=== PATIENT | male | born 2000 | race Hispanic/Latino ===

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

== ENCOUNTER 2022-04-12 20:41 | Emergency (ER) | payer MEDICAID, OTHER ==
--- NOTE | 2022-04-12 21:48 | RAD REPORT ---
EXAM DESCRIPTION: RAD - Chest Pa And Lat (2 Views) - 04/12/2022 9:32 pm CLINICAL HISTORY: CHEST PAIN COMPARISON: Portable chest 02/07/2020 TECHNIQUE: Frontal and lateral views of the chest were obtained. FINDINGS: The lungs are clear. Heart size is normal and central vasculature is within normal limit s. No pleural effusion or pneumothorax seen. No acute bony finding noted. No aortic abnormality. IMPRESSION: No acute cardiopulmonary process.
--- NOTE | 2022-04-12 21:56 | EDPHYS ---
Physician Documentation [facility] Name: Fred Camarena Age: 22 yrs Sex: Male : 2000 Arrival Date: 04/12/2022 Time: 20:48 Bed 14 Private MD: ED Physician Jeffrey Lanier HPI: 04/12 21:04 This 22 yrs old Male presents to ER via Ambulatory with complaints of kb Breathing Difficulty, Flank Pain. 21:04 The patient has shortness of breath at rest. Onset: The symptoms/episode began/occurred kb 2 day(s) ago. Duration: The symptoms are continuous. The patient's shortness of breath has no apparent modifying factors. Associated signs and symptoms: Pertinent positives: chest pain. Severity of symptoms: At their worst the symptoms were moderate in the emergency department the symptoms are unchanged. The patient has not experienced similar symptoms in the past. The patient has not recently seen a physician. pt reports he woke up with shortness of breath 2 days ago with right chest pain. . Historical: - Allergies: 20:52 unknown ADHD med; hb - Home Meds: 20:52 None [Active]; hb - PMHx: 20:52 ADD/ADHD; hb - PSHx: 20:52 None; hb - Immunization history:: Adult Immunizations up to date. - Social history:: Smoking status: Patient reports the use of cigarette tobacco products, denies chronic smoking, but will smoke occasionally. ROS: 21:04 Constitutional: Negative for fever, chills, and weight loss. kb 21:04 Cardiovascular: Positive for chest pain, Negative for edema, orthopnea, palpitations, paroxysmal nocturnal dyspnea. 21:04 Respiratory: Positive for shortness of breath. 21:04 All other systems are negative. Exam: 21:03 Constitutional: This is a well developed, well nourished patient who is awake, alert, kb and in no acute distress. Head/Face: Normocephalic, atraumatic. ENT: Moist Mucous membranes Cardiovascular: Regular rate and rhythm with a normal S1 and S2. No gallops, murmurs, or rubs. No pulse deficits. Respiratory: Respirations even and unlabored. No increased work of breathing. Talking in full sentences Abdomen/GI: Soft, non-tender. No distention Skin: Warm, dry with normal turgor. Normal color. MS/ Extremity: Pulses equal, no cyanosis. Neurovascular intact. Full, normal range of motion. Neuro: Awake and alert, GCS 15, oriented to person, place, time, and situation. Moves all extremities. Normal gait. Psych: Awake, alert, with orientation to person, place and time. Behavior, mood, and affect are within normal limits. 21:03 ECG was reviewed by the Attending Physician. Vital Signs: 20:51 BP 170 / 102; Pulse 109; Resp 20; Temp 97.9; Pulse Ox 97% on R/A; Weight 136.08 kg; hb Height 5 ft. 7 in. (170.18 cm); Pain 8/10; 21:35 BP 124 / 83; Pulse 114; Resp 28; Pulse Ox 97% on R/A; jb4 22:22 BP 117 / 78; Pulse 139; Resp 24; Pulse Ox 96% on R/A; jb4 20:51 Body Mass Index 46.99 (136.08 kg, 170.18 cm) hb MDM: 20:49 Patient medically screened. kb 21:03 Data reviewed: vital signs, nurses notes. Data interpreted: Pulse oximetry: on room air kb is 97 %. Interpretation: normal. 21:55 Counseling: I had a detailed discussion with the patient and/or guardian regarding: the kb historical points, exam findings, and any diagnostic results supporting the discharge/admit diagnosis, radiology results, the need for outpatient follow up, a family practitioner, to return to the emergency department if symptoms worsen or persist or if there are any questions or concerns that arise at home. 04/12 20:53 Order name: Chest Pa And Lat (2 Views) XRAY; Complete Time: 21:54 kb 04/12 20:53 Order name: EKG; Complete Time: 20:53 kb 04/12 20:53 Order name: EKG - Nurse/Tech; Complete Time: 21:05 kb EC:03 Rate is 106 beats/min. Rhythm is regular. QRS [place] is Normal. SC interval is normal at kb 124 msec. QRS interval is normal at 88 msec. QT interval is normal at 448 msec. Administered Medications: 22:06 Drug: Albuterol 2.5 mg Route: Inhalation; 4 22:30 Follow up: Response: No adverse reaction; Marked relief of symptoms jb4 22:06 Drug: AtroVENT (ipratropium) Aerosol 0.5 mg Route: Inhalation; jb4 22:29 Follow up: Response: No adverse reaction; Marked relief of symptoms jb4 22:06 Drug: Ibuprofen 800 mg Route: PO; jb4 22:29 Follow up: Response: No adverse reaction; Marked relief of symptoms; Pain is decreased jb4 Disposition: 22:36 Co-signature as Attending Physician, Jeffrey Lanier MD. rn Disposition Summary: 04/12/22 21:56 Discharge Ordered Location: Home kb Condition: Stable kb Diagnosis - Dyspnea kb - Chest pain on breathing kb Followup: kb - With: Emergency Department - When: As needed - Reason: Worsening of condition Followup: kb - With: Private Physician - When: 2 - 3 days - Reason: Recheck today's complaints, Continuance of care, Re-evaluation by your physician Discharge Instructions: - Discharge Summary Sheet kb - Shortness of Breath, Adult, [id number] kb - Pleurisy, [id number] kb Forms: - Medication Reconciliation Form kb - Thank You Letter kb - Antibiotic Education kb - Prescription Opioid Use kb Signatures: Dispatcher [employer] EDСветлана Parson, SCARF GLUER-C SCARF GLUER-Ckb Jeffrey Lanier MD MD rn Baxter, Heather, RN RN Radu Zuluaga, ABAD RN jb4 Corrections: (The following items were deleted from the chart) 20:53 20:52 Allergies: No Known Allergies; cox monett
--- NOTE | 2022-04-12 21:56 | ER ---
Nurse's Notes [facility] Name: Fred Camarena Age: 22 yrs Sex: Male : 2000 Arrival Date: 04/12/2022 Time: 20:48 Bed 14 Private MD: Diagnosis: Dyspnea;Chest pain on breathing Presentation: 04/12 20:51 Chief complaint: Right sided chest pain x 2 days, pain is worse with deep breathing. hb Coronavirus screen: At this time, the client does not indicate any symptoms associated with coronavirus-19. Ebola Screen: No symptoms or risks identified at this time. Initial Sepsis Screen: Does the patient meet any 2 criteria? No. Patient's initial sepsis screen is negative. Does the patient have a suspected source of infection? No. Patient's initial sepsis screen is negative. Risk Assessment: Do you want to hurt yourself or someone else? Patient reports no desire to harm self or others. Onset of symptoms was April 10, 2022. 20:51 Method Of Arrival: Ambulatory hb 20:51 Acuity: SHAKIRA 3 hb Historical: - Allergies: 20:52 unknown ADHD med; hb - Home Meds: 20:52 None [Active]; hb - PMHx: 20:52 ADD/ADHD; hb - PSHx: 20:52 None; hb - Immunization history:: Adult Immunizations up to date. - Social history:: Smoking status: Patient reports the use of cigarette tobacco products, denies chronic smoking, but will smoke occasionally. Screenin:[facility] ED Fall Risk Assessment (Adult) History of falling in the last 3 months, jb4 including since admission No falls in past 3 months (0 pts) Confusion or Disorientation No (0 pts) Intoxicated or Sedated No (0 pts) Impaired Gait No (0 pts) Mobility Assist Device Used No (0 pt) Altered Elimination No (0 pt) Score/Fall Risk Level 0 - 2 = Low Risk Oriented to surroundings, Maintained a safe environment. Abuse screen: Denies threats or abuse. Nutritional screening: No deficits noted. Tuberculosis screening: No symptoms or risk factors identified. Fall Risk No fall in past 12 months (0 pts). No IV (0 pts). Ambulatory Aid- None/Bed Rest/Nurse Assist (0 pts). Gait- Normal/Bed Rest/Wheelchair (0 pts) Mental Status- Oriented to own ability (0 pts). Total Padilla Fall Scale indicates No Risk (0-24 pts). Assessment: 21:43 General: Appears in no apparent distress. comfortable, Behavior is calm, cooperative, jb4 appropriate for age. Pain: Complains of pain in right lateral anterior chest Pain does not radiate. Pain currently is 7 out of 10 on a pain scale. Quality of pain is described as sharp. Neuro: Level of Consciousness is awake, alert, obeys commands, Oriented to person, place, time, situation. Cardiovascular: Patient's skin is warm and dry. Respiratory: Airway is patent Respiratory effort is even, labored, Respiratory pattern is symmetrical, tachypnea Breath sounds are clear bilaterally. GI: No signs and/or symptoms were reported involving the gastrointestinal system. : No signs and/or symptoms were reported regarding the genitourinary system. EENT: No signs and/or symptoms were reported regarding the EENT system. Derm: Skin is intact, Skin is pink, warm \T\ dry. Musculoskeletal: Circulation, motion, and sensation intact. Range of motion: intact in all extremities. 22:06 Reassessment: D/c pending completion of breathing treatment. jb4 22:22 Reassessment: Patient appears in no apparent distress at this time. Patient and/or jb4 family updated on plan of care and expected duration. Pain level reassessed. Patient is alert, oriented x 3, equal unlabored respirations, skin warm/dry/pink. Pt reports being able to take deeper breaths with ease, reports a decrease in pain. Patient states feeling better. Patient states symptoms have improved. 22:28 Reassessment: Updated provider on pt status and vs, provider okayed pt for d/c. jb4 Vital Signs: 20:51 BP 170 / 102; Pulse 109; Resp 20; Temp 97.9; Pulse Ox 97% on R/A; Weight 136.08 kg; hb Height 5 ft. 7 in. (170.18 cm); Pain 8/10; 21:35 BP 124 / 83; Pulse 114; Resp 28; Pulse Ox 97% on R/A; jb4 22:22 BP 117 / 78; Pulse 139; Resp 24; Pulse Ox 96% on R/A; jb4 20:51 Body Mass Index 46.99 (136.08 kg, 170.18 cm) hb ED Course: 20:48 Patient arrived in ED. ja2 20:49 [facility]ан[facility] kb 20:49 Jeffrey Lanier MD is Attending Physician. kb 20:52 Triage completed. hb 20:52 Arm band placed on. hb 21:34 Chest Pa And Lat (2 Views) XRAY In Process Unspecified. EDMS 21:43 Radu Mendes, RN is Primary Nurse. jb4 21:43 Patient has correct armband on for positive identification. Placed in gown. Bed in low jb4 position. Call light in reach. Side rails up X 1. 21:43 Client placed on continuous cardiac and pulse oximetry monitoring. NIBP monitoring jb4 applied. quality assurance monitor on. 22:28 No provider procedures requiring assistance completed. Patient did not have IV access jb4 during this emergency room visit. Administered Medications: 22:06 Drug: Albuterol 2.5 mg Route: Inhalation; jb4 22:30 Follow up: Response: No adverse reaction; Marked relief of symptoms jb4 22:06 Drug: AtroVENT (ipratropium) Aerosol 0.5 mg Route: Inhalation; jb4 22:29 Follow up: Response: No adverse reaction; Marked relief of symptoms jb4 22:06 Drug: Ibuprofen 800 mg Route: PO; jb4 22:29 Follow up: Response: No adverse reaction; Marked relief of symptoms; Pain is decreased jb4 Medication: 22:28 VIS not applicable for this client. jb4 Outcome: 21:56 Discharge ordered by . kb 22:29 Discharged to home ambulatory. jb4 22:29 Condition: stable 22:29 Discharge instructions given to patient, Instructed on discharge instructions, follow up and referral plans. Demonstrated understanding of instructions, follow-up care. 22:30 Patient left the ED. jb4 Signatures: Dispatcher [employer] EDMS Светлана Cross FNP-C FNP-Ckb Baxter, Heather, RN RN Radu Mendes RN RN jb4 Reena Allen2 Corrections: (The following items were deleted from the chart) 20:53 20:52 Allergies: No Known Allergies; hb hb 20:55 20:51 BP 174 / 114; Pulse 109bpm; Resp 20bpm; Pulse Ox 97% RA; Temp 97.9F; 136.08 kg; hb Height 5 ft. 7 in.; BMI: 46.9; Pain 8/10; hb 21:45 21:43 Respiratory: Airway is patent Respiratory effort is even, unlabored, Respiratory jb4 pattern is regular, symmetrical, Breath sounds are clear bilaterally. jb4 22:29 22:22 Reassessment: Patient appears in no apparent distress at this time. Patient jb4 and/or family updated on plan of care and expected duration. Pain level reassessed. Patient is alert, oriented x 3, equal unlabored respirations, skin warm/dry/pink. jb4
[2022-04-12] MEDS ORDERED: IBUPROFEN 400 MG TAB ONE (22:02)
[2022-04-12] MEDS ORDERED: ALBUTEROL 2.5 MG/3 ML NEB SOL ONE (22:02)
[2022-04-12] MEDS ORDERED: IPRATROPIUM BROM 0.5MG/2.5ML ONE (22:03)
[2022-04-12 22:35] VITALS: TEMP 97.9
[2022-04-12 22:37] VITALS: BP 117/78; O2SAT 96
--- NOTE | 2022-04-14 15:18 | EKG ---
Test Date: 2022-04-12 Test Time: 20:58:14 Asset Administrator: MERT MEASUREMENT RESULTS: Intervals: Rate: 106 NV: 124 QRSD: 88 QT: 338 QTc: 448 [place]: P: 56 NV: 124 QRS: 64 T: 28 INTERPRETIVE STATEMENTS: Sinus tachycardia Otherwise normal ECG Compared to ECG 02/07/2020 17:09:01 Sinus bradycardia no longer present Sinus arrhythmia no longer present Electronically Signed On 04-14-22 15:16:08 PHOTO TUBE ASSEMBLER by Sushil Brown
== END 2022-04-12 22:30 | disposition home or self-care (01) ==
LOC: ER 20:41
DX: R07.1 Chest pain on breathing (principal); R06.00 Dyspnea, unspecified; F17.210 Nicotine dependence, cigarettes, uncomplicated; F90.9 Attention-deficit hyperactivity disorder, unspecified type
CPT/HCPCS: 93005; 71046; 99284; J7613; J7644